=== PATIENT | male | born 1980 ===

== ENCOUNTER 2018-11-20 17:17 | Emergency (ER) | payer OTHER ==
[~2018-11-20] VITALS: Ht 170.2 cm; Wt 50.8 kg
[2018-11-20 17:17] VITALS: BP 125/68
--- NOTE | 2018-11-20 17:17 | NUR ---
PATIENT BIB BLS TO ER BED 8.
--- NOTE | 2018-11-20 17:28 | NUR ---
38M BIBA C/O ATYPICAL CHEST PAIN SINCE 10/31/18. RATES CP AT 8/10 NOW, CHARACTERIZED CONSTANT, HEAVY, PRESSURE. STATES HE FEELS LIKE "PASSING OUT" SOMETIMES, DENIES SYNCOPAL EPISODE. NECK STIFFNESS OCCASIONALLY ACCOMPANIES CHEST PAIN. STATES NAUSEA, DENIES VOMITING. STATES LIGHTHEADEDNESS, SOB, COLD SWEATS, CP WORSE WITH EXERTION AND AFTER EATING FOOD. DENIES NIGHT SWEATS. EMS REPORTS IS CURRENTLY ON DETOX FROM ALCOHOL AND BENZODIAZEPINES. PT REPORTS HAVING SEIZURE 1 WEEK AGO. LAST TIME CONSUMING ETOH WAS THIS MORNING- 2 BEERS. PT HAS HX OF "SEVERE ANXIETY", FOR WHICH HE TAKES ATIVAN AND XANAX. RAYNA LOCKED & LOW, SIDERAILS UP. ERMD TO EVAL PATIENT.
--- NOTE | 2018-11-20 17:30 | NUR ---
Seizure pads have been placed.
--- NOTE | 2018-11-20 17:55 | NUR ---
medical records field technician at bedside.
[2018-11-20] MEDS ORDERED: FAMOTIDINE 20 MG TAB PO ONE (18:45)
[2018-11-20] MEDS ORDERED: ALUMINUM HYD/MAG/SIMETHICONE 30 ML UDC PO ONE (18:45)
[2018-11-20] MEDS ORDERED: KETOROLAC 60 MG/2 ML VIAL IM ONE (18:45)
[2018-11-20 19:09] LABS: ANION GAP 14.1 (8-16); CARBON DIOXIDE 25.7 mmol/L (21-32); CREATININE 0.7 mg/dL (0.7-1.3); POTASSIUM 3.8 mmol/L (3.5-5.1)
--- NOTE | 2018-11-20 19:09 | NUR ---
RECEIVED REPORT FROM MINESH ORTIZ. ASSUMED CARE AT THIS TIME.
[2018-11-20 19:10] LABS: BASOPHILS % (AUTO) 0.6 % (0.0-2.0); EOSINOPHILS % (AUTO) 0.1 % (0.0-4.0); HEMATOCRIT 41.4 % (36-52); HEMOGLOBIN 14.2 g/dL (12.0-18.0); LYMPHOCYTES # (AUTO) 1.5 K/uL (2.0-11.5); LYMPHOCYTES % (AUTO) 28.4 % (20.5-51.1); MEAN CORPUSCULAR HEMOGLOBIN 31 pg (27-31); MEAN CORPUSCULAR HGB CONC 34 g/dL (33-37); MEAN CORPUSCULAR VOLUME 91.5 fL (80-94); MONOCYTES # (AUTO) 0.3 K/uL (0.8-1.0); MONOCYTES % (AUTO) 6.1 % (1.7-9.3); NEUTROPHILS # (AUTO) 3.3 K/uL (1.8-7.7); NEUTROPHILS % (AUTO) 64.8 % (42.2-75.2); PLATELET COUNT (AUTO) 151 K/uL (140-450); RED BLOOD CELL COUNT(AUTO) 4.53 MIL/uL (4.20-6.10); RED CELL DISTRIBUTION WIDTH 13.1 % (11.6-13.7); WHITE BLOOD COUNT (AUTO) 5.2 K/uL (4.8-10.8)
[2018-11-20 19:14] LABS: ALBUMIN 4.1 g/dL (3.4-5.0); TOTAL BILIRUBIN 0.4 mg/dL (0.0-1.0)
[2018-11-20 19:19] VITALS: BP 128/86
--- NOTE | 2018-11-20 19:22 | NUR ---
REPORT GIVEN TO MINESH KOHLER.
[2018-11-20 20:01] LABS: BARBITURATE, URINE POS. ng/ml (NEG <=200); BENZODIAZEPINE, URINE POS. ng/mL (NEG <=200); CANNABINOID, URINE NEG. ng/mL (NEG <=50); COCAINE, URINE NEG. ng/mL (NEG <=300); OPIATE, URINE NEG. ng/mL (NEG <=2000); PHENCYCLIDINE SCREEN,URINE NEG. ng/mL (NEG <=25)
== END 2018-11-20 19:42 | disposition home or self-care (01) ==
LOC: MED 17:17
DX: F41.9 Anxiety disorder, unspecified (principal); R07.89 Other chest pain; R51 Headache; F17.200 Nicotine dependence, unspecified, uncomplicated; Z90.49 Acquired absence of other specified parts of digestive tract
CPT/HCPCS: 36415; 71045; 80053; 80305; 84484; 85025; 93005; 96372; 99284; J1885; Q0092